=== PATIENT | male | born 1965 | race African-American/Black ===

== ENCOUNTER 2016-12-27 02:19 | Inpatient (IN) | payer MEDICAID ==
[2016-12-27] VITALS (11 sets, daily range): BP systolic 102–131; BP diastolic 43–82
[~2016-12-27] VITALS: Ht 177.8 cm; Wt 109.4 kg
--- NOTE | ~2016-12-27 | CATHLAB ---
[facility] [address] [place] [address] INVASIVE PROCEDURE REPORT Name: CK MCLAUGHLIN Room #: 214-P [facility] IN M.R.#: [id number] Admission: 12/27/16 Attend Phys: Blayne Masterson MD Discharge: 12/27/16 Date of : 63 Date of Service: 12/27/16 0345 Report #: [id number] THIS REPORT FOR: //name// CC: Blayne NUR CARDIAC CATHETERIZATION REPORT DATE OF PROCEDURE: 12/27/2016. INDICATION: Chest pain, rule out myocardial infarction. Risks, benefits and alternatives of cardiac catheterization were explained to the patient. All questions were answered. The right groin area was prepped and draped in a sterile manner. Lidocaine was given subcutaneously. A 6-Greenlandic sheath was inserted into the right femoral artery via modified Seldinger technique. CORONARY ANATOMY: The left main artery is a large caliber vessel, with no flow-limiting lesions. The LAD is a moderate to large size caliber vessel, travelling down the anterior wall and wrapping around the apex. There were no flow-limiting lesions in the LAD. The first diagonal artery has a high takeoff, has no flow limiting lesions. The left circumflex artery branches off into several small to moderate size caliber obtuse marginal arteries. There were no flow-limiting lesions in the left circumflex artery. The RCA is a dominant vessel supplying a PDA and several posterolateral branches. There were no flow-limiting lesions in the RCA. A left ventriculogram was performed in the LIMON projection at 30 degree revealing normal LV systolic function, ejection fraction of 60%. The LVEDP is approximately 13 mmHg. There is no gradient across the outflow tract. At the end of the procedure, the sheath was removed and a closure device was used. The patient tolerated the procedure without any complications. IMPRESSION: 1. Angiographically normal coronary arteries. 2. Right dominant system. 3. Normal LV systolic function. 4. Risk factor management. <ELECTRONICALLY SIGNED> By: Blayne Masterson MD 12/29/16 0833 [id number] 1402 Blayne Masterson MD /nt
--- NOTE | ~2016-12-27 | D ---
[facility] [place] [address] DISCHARGE SUMMARY Name: CK MCLAUGHLIN Room #: 214-P [facility] IN M.R.#: [id number] Admission: 12/27/16 Attend Phys: Blayne Masterson MD Discharge: 12/27/16 Date of : 63 Report #: [id number] THIS REPORT FOR: //name// CC: Blayne Masterson NO PCP DISCHARGE DIAGNOSIS: Noncardiac chest pain. PROCEDURES PERFORMED: Diagnostic cardiac catheterization. HISTORY OF PRESENT ILLNESS: The patient is a 51-year-old with history of hypertension and hypothyroidism, who presented to the ER with complaints of chest pain. He had an EKG that showed either early repolarization versus an acute LA. He was taken for heart catheterization, which demonstrated normal coronary arteries. HOSPITAL COURSE: He was monitored overnight. He had no recurrent chest pain. His blood pressure and vitals were within normal limits. On telemetry, he remained in sinus rhythm with no arrhythmias. On the day of discharge, he was feeling much better, no longer complaining of chest discomfort. PHYSICAL EXAMINATION: HEART: Regular rate and rhythm, with no murmurs, rubs, gallops. LUNGS: Clear bilaterally. ABDOMEN: Soft, nontender and nondistended. EXTREMITIES: There is no clubbing, cyanosis or edema, with 2+ pulses. DISCHARGE INSTRUCTIONS: As such, he was deemed stable for discharge home with instructions to resume his standard home medications including blood pressure and thyroid meds and he was instructed to follow up with his primary care physician, Dr. Griffith in 1-2 weeks. <ELECTRONICALLY SIGNED> By: Siddharth Leal MD 12/29/16 1552 1117 1413 Siddharth Leal MD /nt
--- NOTE | ~2016-12-27 | EKG ---
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 : 1965 Requested By: Imtiaz House Order Number: [id number] MD: Raul Munoz Measurements Intervals [place] Rate: 88 P: 36 NH: 194 QRS: -16 QRSD: 92 T: -3 QT: 353 QTc: 427 Interpretive Statements Sinus rhythm Left ventricular hypertrophy ST elev, probable normal early repol pattern No previous ECG available for comparison Electronically Signed On 12-28-2016 15:51:32 CDT by Raul Munoz [email or web address] <ELECTRONICALLY SIGNED> By: Raul Munoz MD, [facility] 12/28/16 1551 6 6 Raul Munoz MD, [facility] /EPI
--- NOTE | ~2016-12-27 | H ---
[facility] [place] [address] HISTORY AND PHYSICAL Name: CK MCLAUGHLIN Room #: 214-P [facility] IN M.R.#: [id number] Admission: 12/27/16 Attend Phys: Blayne Masterson MD Discharge: 12/27/16 Date of : 63 Report #: [id number] THIS REPORT FOR: //name// CC: Blayne Masterson NO PCP INDICATION: Chest pain. HISTORY OF PRESENT ILLNESS: This is a 51-year-old gentleman with a past medical history significant for hypertension and hypothyroidism, presenting with chest pains. Around 10:30 this evening, he developed a discomfort on the left lower chest area, nonradiating. The pain persisted, and he felt a headache and some shortness of breath. He did take aspirin at home. 911 was called, and he was brought to the ER for an evaluation. The ECG reveals sinus rhythm with [address] elevation in leads 1 and aVL and reciprocal ST changes in lead 3. The patient denies any history of fever, chills, PND or orthopnea. PAST MEDICAL HISTORY: Hypertension, hypothyroidism. Followed by Dr. Kobe Griffith. Denies any history of diabetes mellitus. ALLERGIES: None. MEDICATIONS: Include lisinopril 20 mg daily, hydrochlorothiazide 25 mg daily and Synthroid 50 mcg daily. SOCIAL HISTORY: Denies tobacco use. Denies any history of drug use. FAMILY HISTORY: Negative for premature CAD. REVIEW OF SYSTEMS: Only the pertinent positives and negatives are described in the HPI. PHYSICAL EXAMINATION: VITAL SIGNS: Blood pressure is 140/70 and heart rate is 88 beats per minute. GENERAL APPEARANCE: A well-developed, well-nourished male in no acute respiratory distress. HEAD AND EYES: Normocephalic. Sclerae are anicteric. ENT: Oral mucosa moist. NECK: Supple. LUNGS: Clear to auscultation. CARDIAC: Regular rate and rhythm. S1, S2 positive. No murmurs or gallops. ABDOMEN: Soft, nontender. Bowel sounds positive. EXTREMITIES: No major joint deformities. No edema. LABORATORY VALUES: Pending. DIAGNOSTIC DATA: ECG reveals sinus rhythm with ST elevation in leads 1 and aVL [facility] [address] [place] [address] HISTORY AND PHYSICAL Name: CK MCLAUGHLIN Room #: 214-P [facility] IN M.R.#: [id number] Admission: 12/27/16 Attend Phys: Blayne Masterson MD Discharge: 12/27/16 Date of : 63 Report #: [id number] and slight elevation in V2 and V3. ASSESSMENT AND PLAN: 1. Rule out anterior lateral myocardial infarction. I spoke with the patient and his fiancee regarding the risks and benefits of a cardiac catheterization. They understand and wish to proceed. 2. Hypertension, continue with medications. 3. Hypothyroidism, continue with Synthroid. 4. Hypercholesterolemia. We will need lipid panel evaluated. <ELECTRONICALLY SIGNED> By: Blayne Masterson MD 12/29/16 0834 0309 0356 Blayne Masterson MD /black
[2016-12-27] MEDS ORDERED: LISINOPRIL10 MG PO (03:02)
[2016-12-27] MEDS ORDERED: LEVOTHYROXINE0.05 MG PO (03:02)
[2016-12-27] MEDS ORDERED: HYDROCHLOROTHIA25 M2 PO (03:03)
[2016-12-27 03:10] LABS: ABSOLUTE NEUTROPHILS 2.4 thou/uL (1.4-8.2); BASOPHILS 1.2 % (0.0-2.0); EOSINOPHILS 4.5 % (0.0-3.0); HEMATOCRIT 36.1 % (42.0-52.0); HEMOGLOBIN 12.3 gm/dL (14.0-18.0); LYMPHOCYTES 37.2 % (24.0-44.0); MCH 29.2 pg (26.0-34.0); MCV 85.9 fL (80.0-100.0); PLATELET COUNT 275 thou/uL (150-400); POLYS 47.1 % (36.0-66.0); RDW 14.6 % (10.5-14.5)
[2016-12-27 03:11] LABS: MANUAL DIFF NO
[2016-12-27 03:18] LABS: ANION GAP 11 mmol/L (7-16); BUN 19 mg/dL (7-18); CALCIUM 9.4 mg/dL (8.5-10.1); CHLORIDE 101 mmol/L (98-107); CO2 28 mmol/L (21-32); CREATININE 1.6 mg/dL (0.7-1.3); GLUCOSE 118 mg/dL (74-106); POTASSIUM 4.2 mmol/L (3.5-5.1); SODIUM 140 mmol/L (136-145)
[2016-12-27 03:25] LABS: TROPONIN-I < 0.04 ng/mL (<0.04-0.07)
[2016-12-27 13:21] LABS: POC CA IONIZED 4.8 mg/dL (4.5-5.3); POC CREATININE 1.5 mg/dL (0.6-1.3); POC HEMOGLOBIN 12.2 g/dL (14.0-18.0); POC POTASSIUM 3.9 mmol/L (3.5-5.1)
== END 2016-12-27 14:04 | disposition home or self-care (01) | DRG 287 ==
LOC: ER 02:19 → TBA 03:15 → 2N 04:24
PROVIDERS: Emergency Medicine; Internal Medicine Cardiovascular Disease
PROC: 4A023N7 Measurement of Cardiac Sampling and Pressure, Left Heart, Percutaneous Approach (ICD-10-PCS; principal; 2016-12-27)
PROC: B2151ZZ Fluoroscopy of Left Heart using Low Osmolar Contrast (ICD-10-PCS; principal; 2016-12-27)
PROC: B2111ZZ Fluoroscopy of Multiple Coronary Arteries using Low Osmolar Contrast (ICD-10-PCS; principal; 2016-12-27)
DX: R07.89 Other chest pain (principal); I10 Essential (primary) hypertension; E03.9 Hypothyroidism, unspecified; E78.00 Pure hypercholesterolemia, unspecified; Z79.899 Other long term (current) drug therapy
CPT/HCPCS: 10081

== ENCOUNTER 2017-02-10 09:52 | Emergency (ER) | payer MEDICAID ==
[~2017-02-10] VITALS: Ht 177.8 cm; Wt 113.4 kg
[~2017-02-10 09:52] MED LIST: HYDROCHLOROTHIA25 M2 PO; LEVOTHYROXINE0.05 MG PO; LISINOPRIL10 MG PO
[2017-02-10] MEDS ORDERED: NAPROSYN500 MG PO (10:54)
[2017-02-10] MEDS ORDERED: NORFLEX100 MG PO (10:54)
[2017-02-10] MEDS ORDERED: ZYRTEC10 M2 PO (10:54)
[2017-02-10] MEDS ORDERED: FLONASE 0.05%50 MCG NASAL ×2 (10:54→11:06)
== END 2017-02-10 10:55 | disposition home or self-care (01) ==
LOC: ER 09:52
DX: G44.209 Tension-type headache, unspecified, not intractable (principal); J30.9 Allergic rhinitis, unspecified; I10 Essential (primary) hypertension; J34.89 Other specified disorders of nose and nasal sinuses